=== PATIENT | female | born 1960 | race Caucasian/White ===

== ENCOUNTER 2022-12-11 22:06 | Inpatient (IN) | payer MEDICARE, SELFPAY ==
[2022-12-11 22:20] VITALS: BP 134/90; PULSE 94; RESP 18; TEMP 36.9; O2SAT 97; BMI 33.0
--- NOTE | 2022-12-11 23:43 | ECG_ITS ---
[facility] Test Date: 2022-12-11 Pat Name: Farzana Vasques Department: Room: Gender: Female [employer] Technician: : 1960 Requested By: Jerry Ozuna Order Number: [id number] Maxi MD: Veronica Heard M.D. Measurements Intervals [place] Rate: 80 P: 59 OH: 150 QRS: -28 QRSD: 92 T: 54 QT: 366 QTc: 425 Interpretive Statements SINUS RHYTHM INCOMPLETE RIGHT BUNDLE BRANCH BLOCK [90+ ms QRS DURATION, TERMINAL R IN V1/V2, 40+ ms S IN I/aVL/V4/V5/V6] SEPTAL MYOCARDIAL INFARCTION , OF INDETERMINATE AGE [40+ ms Q WAVE IN V1/V2] No previous ECG available for comparison Electronically Signed On 12-12-2022 5:55:36 CDT by Veronica Heard M.D. [email or web address]
[2022-12-12 00:48] LABS: Basophils # 0.1 10^3/uL (0.0-0.1); Basophils % 0.8 %; Eosinophils # 0.1 10^3/uL (0.0-0.8); Eosinophils % 2.2 %; Hematocrit 36.9 % (36-47); Lymphocytes # 2.4 10^3/uL (0.8-4.8); Lymphocytes % 38.3 %; Mean Corpuscular HGB Conc 33.6 g/dL (30-55); Mean Corpuscular Hemoglobin 29.7 pg (27-33); Mean Corpuscular Volume 88.3 fl (85-98); Monocytes # 0.6 10^3/uL (0.2-0.9); Monocytes % 10.2 %; Neutrophils # 2.99 10^3/uL (1.8-7.7); Neutrophils % 47.7 %; Nucleated Red Blood Cells % 0 %; Platelet Count 167 10^3/cmm (157-399); Red Blood Count 4.18 10^6/uL (3.85-5.65); Red Cell Distribution Width 13.2 % (12.1-15.1); White Blood Count 6.27 10^3/uL (3.29-11.43)
[2022-12-12 01:03] LABS: Alanine Aminotransferase 33 U/L (0-33); Albumin Level 4.2 g/dL (3.5-5.2); Alkaline Phosphatase 85 U/L (35-105); Anion Gap 13.6 (5-19); Aspartate Amino Transferase 41 U/L (0-32); Blood Urea Nitrogen 11 mg/dL (8-23); Calcium 9.2 mg/dL (8.5-10.5); Carbon Dioxide 24 mmol/L (22-29); Chloride 106 mmol/L (98-107); Globulin 2.5 g/dL (1.3-4.6); Glomerular Filtration Rate 72.4 mL/min (90-130); Glucose 111 mg/dL (65-115); Osmolality Calculated 290 mOsm/kg (285-295); Potassium 3.6 mmol/L (3.5-5.1); Sodium 140 mmol/L (136-145); Total Bilirubin 0.3 mg/dL (0.15-1.2); Total Protein 6.7 g/dL (6.6-8.7)
--- NOTE | 2022-12-12 03:25 | PC.NURSE ---
Provider in room, pt screaming and crying. upset with provider that he they have been waiting for a long time despite prev informed that it might be a little wait.
[2022-12-12] MEDS: LORazepam 2 mg/mL INJ 1 mL IVP (03:27)
[2022-12-12] MEDS: haloperidol inj 5 mg/mL INJ 1 mL 3 MG IVP (03:27)
[2022-12-12 03:31] VITALS: BP 143/88; PULSE 68; RESP 18; O2SAT 99
[2022-12-12 03:58] LABS: Acetaminophen < 5.0 ug/mL (10-30); Alcohol Level < 10 mg/dL (0-10); Salicylate < 0.3 mg/dL (3-10)
[2022-12-12 04:44] LABS: Add Urine Microscopic? YES; Bilirubin Urine 1+ (Negative); Blood Urine Neg (Negative); Glucose Urine UA Norm (Normal); Ketones Urine Negative (Negative); Leukocyte Esterase Urine Trace (Negative); Nitrate Urine Negative (Negative); Protein Urine Trace (Negative); Specific Gravity, Urine 1.015 (1.005-1.030); Urine Appearance Clear (CLEAR); Urine Color Yellow (Yellow); Urobilinogen Urine 1 mg/dL (Negative); pH Urine 5 (5-7)
[2022-12-12 04:45] LABS: Add Urine Culture? No; WBC Urine 0-4 /hpf (0-5)
[2022-12-12 05:15] LABS: Amphetamines Screen Urine Negative (Negative); Barbiturates Screen Urine Negative (Negative); Benzodiazepines Screen Urine Positive (Negative); Cocaine Screen Urine Negative (Negative); Opiate Screen Urine Negative (Negative); PCP Screen Urine Negative (Negative); THC Screen Urine Negative (Negative)
--- NOTE | 2022-12-12 05:17 | W.ED.GENADLT ---
HPI - General Adult General: Chief complaint: General Medical Stated complaint: Shoulder Pain\Dehydrated Time Seen by Provider: 12/12/22 03:13 History of Present Illness: 62-year-old female with a history of bipolar disorder. She has had inpatient admissions for psychiatric disease in the past. Her states that he took her to [facility] yesterday because she had multiple complaints including Shoulder discomfort, shortness of breath, and insomnia. She evidently had a CT scan there that was negative. Has been believes it is her anxiety causing the shortness of breath. She is quite anxious on interview. She is asking for her mother. She is crying hysterically. states that she has not. She had a recent shoulder replacement surgery 4 weeks ago, and has been in pain, although the pain has reasonably been controlled says. She has not made any overt suicidal statements. She is difficult to interview, due to her distress. No other recent illness. Associated symptoms: Reports dyspnea and nausea; Deny rash or vomiting Review of Systems Const: Denies: fever(s) Eyes: Denies: change in vision Resp: Reports: dyspnea; Denies: productive cough or non-productive cough GI: Reports: nausea; Denies: abdominal pain or vomiting Skin/Breast: Denies: rash Neuro: Reports: weakness in extremities (Diffuse) Psych: Reports: anxiety, depression, panic attacks, sleeping less, hopelessness, loss of interest and change in appetite Physical Exam Const: GENERAL APPEARANCE: in distress and ill appearing; not cooperative and not frail appearing HENMT: COMMON NORMALS: normocephalic and atraumatic HEAD & SCALP: normocephalic and atraumatic FACE & SINUS: normal facial exam Eye: COMMON NORMALS: Equal, round and reactive pupils present and EOMs intact bilaterally PUPIL: Yes Equal, round and reactive pupils present Neck/C-Spine: GENERAL: Yes trachea midline Chest: CHEST: Yes Symmetrical chest wall rise Resp: COMMON NORMALS: normal respiratory effort, No retractions, No use of accessory muscles and clear to auscultation bilaterally AUSCULTATION: clear to auscultation bilaterally Cardio: COMMON NORMALS: regular rate and regular rhythm RATE: regular rate RHYTHM: regular rhythm GI: COMMON NORMALS: Normal to inspection, nondistended, normoactive bowel sounds present PALPATION: No Tenderness to palpation present (GI) Extremity: COMMON NORMALS: no pedal edema Neuro: RAAD COMA SCALE: document GCS findings [place] coma scale eye opening: Spontaneous Raad coma scale verbal response: Orientated Raad coma scale motor response: Obey commands Raad coma scale total score: 15 SPEECH: speech normal Psych: ATTITUDE: Yes bizarre and Yes agitated ACTIVITY/MOTOR BEHAVIOR: Yes psychomotor agitation and Yes fidgeting SPEECH: Yes Pressured speech present THOUGHT PROCESS: Circumstantial thought process present THOUGHT CONTENT: Yes delusions and Yes Derealization present ATTENTION/CONCENTRATION: Yes attention grossly impaired and Yes concentration grossly impaired MEMORY/COGNITION: Yes memory grossly intact and Yes cognition grossly intact INSIGHT: Limited insight present (Psych) JUDGEMENT: Limited judgement present (Psych) Skin: COMMON NORMALS: no rashes or lesions noted GENERAL SKIN EXAM: no rashes or lesions noted Course Vital Signs: Vital signs: Vital Signs Temperature 98.4 F 12/11/22 22:20 Pulse Rate 68 12/12/22 03:31 Respiratory Rate 18 12/12/22 03:31 Blood Pressure 143/88 12/12/22 03:31 Pulse Oximetry 99 12/12/22 03:31 Oxygen Delivery Me thod Room Air 12/12/22 03:31 MDM - General Adult Medical Decision Making Medically, labs are quite stable. No abnormalities. this patient is hysterical at times. She is nonsensical. She continues to cry and ask for her mom. Her says that he is at his wits end. He is having trouble helping her cope at home. He cannot take care of her. Although not frankly suicidal, she does present a danger to herself and that her judgment is compromised at this point. She is willing to stay and be evaluated by psychiatry, I think this is appropriate. Medically, she is stable. Spoke with psychiatry. Agrees with admit. Lab Data 12/12/22 00:36 12/12/22 00:36 Laboratory Results WBC 6.27 10^3/uL (3.29-11.43) 12/12/22 00:36 RBC 4.18 10^6/uL (3.85-5.65) 12/12/22 00:36 Hgb 12.40 g/dL (11.27-16.99) 12/12/22 00:36 Hct 36.9 % (36-47) 12/12/22 00:36 MCV 88.3 fl (85-98) 12/12/22 00:36 MCH 29.7 pg (27-33) 12/12/22 00:36 MCHC 33.6 g/dL (30-55) 12/12/22 00:36 RDW 13.2 % (12.1-15.1) 12/12/22 00:36 Plt Count 167 10^3/cmm (157-399) 12/12/22 00:36 MPV 10.0 fL (7.4-10.4) 12/12/22 00:36 Neut % (Auto) 47.7 % 12/12/22 00:36 Lymph % (Auto) 38.3 % 12/12/22 00:36 [place] % (Auto) 10.2 % 12/12/22 00:36 Eos % (Auto) 2.2 % 12/12/22 00:36 Baso % (Auto) 0.8 % 12/12/22 00:36 Neut # (Auto) 2.99 10^3/uL (1.8-7.7) 12/12/22 00:36 Lymph # (Auto) 2.4 10^3/uL (0.8-4.8) 12/12/22 00:36 [place] # (Auto) 0.6 10^3/uL (0.2-0.9) 12/12/22 00:36 Eos # (Auto) 0.1 10^3/uL (0.0-0.8) 12/12/22 00:36 Baso # (Auto) 0.1 10^3/uL (0.0-0.1) 12/12/22 00:36 Nucleated RBC % (auto) 0 % 12/12/22 00:36 Nucleated RBCs # 0.0 /100WBC 12/12/22 00:36 Sodium 140 mmol/L (136-145) 12/12/22 00:36 Potassium 3.6 mmol/L (3.5-5.1) 12/12/22 00:36 Chloride 106 mmol/L (98-107) 12/12/22 00:36 Carbon Dioxide 24 mmol/L (22-29) 12/12/22 00:36 Anion Gap 13.6 (5-19) 12/12/22 00:36 BUN 11 mg/dL (8-23) 12/12/22 00:36 Creatinine 0.8 mg/dL (0.5-0.9) 12/12/22 00:36 GFR Calculation 72.4 mL/min (90-130) L 12/12/22 00:36 Glucose 111 mg/dL (65-115) 12/12/22 00:36 Calculated Osmolality 290 mOsm/kg (285-295) 12/12/22 00:36 Calcium 9.2 mg/dL (8.5-10.5) 12/12/22 00:36 Magnesium 2.0 mg/dL (1.7-2.3) 12/12/22 00:36 Total Bilirubin 0.3 mg/dL (0.15-1.2) 12/12/22 00:36 AST 41 U/L (0-32) H 12/12/22 00:36 ALT 33 U/L (0-33) 12/12/22 00:36 Alkaline Phosphatase 85 U/L (35-105) 12/12/22 00:36 Total Protein 6.7 g/dL (6.6-8.7) 12/12/22 00:36 Albumin 4.2 g/dL (3.5-5.2) 12/12/22 00:36 Globulin 2.5 g/dL (1.3-4.6) 12/12/22 00:36 Urine Color Yellow (Yellow) 12/12/22 04:27 Urine Appearance Clear (CLEAR) 12/12/22 04:27 Urine pH 5 (5-7) 12/12/22 04:27 Ur Specific [place] 1.015 (1.005-1.030) 12/12/22 04:27 Urine Protein Trace (Negative) 12/12/22 04:27 Urine Glucose (UA) Norm (Normal) 12/12/22 04:27 Urine Ketones Negative (Negative) 12/12/22 04:27 Urine Blood Neg (Negative) 12/12/22 04:27 Urine Nitrate Negative (Negative) 12/12/22 04:27 Urine Bilirubin 1+ (Negative) H 12/12/22 04:27 Urine Urobilinogen 1 mg/dL (Negative) H 12/12/22 04:27 Ur Leukocyte Esterase Trace (Negative) H 12/12/22 04:27 Urine RBC None /hpf (0-2) 12/12/22 04:27 Urine WBC 0-4 /hpf (0-5) H 12/12/22 04:27 Ur Squamous Epith Cells 10-15 /hpf (0-5) H 12/12/22 04:27 Amorphous Sediment Not Reportable 12/12/22 04:27 Urine Bacteria None /hpf (NONE) 12/12/22 04:27 Salicylates < 0.3 mg/dL (3-10) L 12/12/22 00:36 Urine Opiates Screen Negative ng/mL (Negative) 12/12/22 04:27 Acetaminophen < 5.0 ug/mL (10-30) L 12/12/22 00:36 Ur Barbiturates Screen Negative ng/mL (Negative) 12/12/22 04:27 Ur Phencyclidine Scrn Negative ng/mL (Negative) 12/12/22 04:27 Ur Amphetamines Screen Negative ng/mL (Negative) 12/12/22 04:27 U Benzodiazepines Scrn Positive ng/mL (Negative) H 12/12/22 04:27 Urine Cocaine Screen Negative ng/mL (Negative) 12/12/22 04:27 U Marijuana (THC) Screen Negative ng/mL (Negative) 12/12/22 04:27 Ethyl Alcohol < 10 mg/dL (0-10) 12/12/22 00:36 All radiology interpretation(s) finalized by discharge Discharge Plan Discharge Patient Disposition: Admitted As Inpatient Admit Provider: Gibson Quesada Condition: Stable Coding Level of Care Code ED Sales Office Administrator for Alonzo Serrano
[2022-12-12 05:29] VITALS: BP 141/82; PULSE 58; RESP 18; TEMP 36.7; O2SAT 98
[2022-12-12 05:41] VITALS: BMI 33.0
[2022-12-12 06:00] VITALS: BP 141/82; PULSE 58; RESP 18; TEMP 36.7; O2SAT 98
--- NOTE | 2022-12-12 06:20 | PC.NURSE ---
Pt arrived to NPU in w/c w/2 RN's present. Pt is somnolent from receiving medications in ER. Calm and cooperative w/assessment.
--- NOTE | 2022-12-12 08:13 | PC.NURSE ---
refused flu vaccine, consent signed by patient & put in chart
[2022-12-12 12:25] VITALS: BP 108/70; PULSE 68; RESP 18; TEMP 37.2; O2SAT 97
--- NOTE | 2022-12-12 13:11 | P.NPUHP_ITS ---
Providers/Chief Complaint Admitting Physician: Gibson Quesada MD Chief Complaint: Shoulder Pain\depressed mood HPI NPU History of Present Illness Farzana Vasques is a 62 year old female with a past history of bipolar disorder and multiple inpatient hospitalizations who presented to the emergency department with depression and anxiety. The patient had initially reported that she had been taken to [facility] yesterday after she had had multiple problems including significant pain shortness of breath and insomnia. She had reported that her symptoms had been worse despite there being reassurances that there was nothing acute occurring. She was admitted to the neuropsychiatric unit for further evaluation and treatment. She reports that she has been having suicidal thoughts beginning last night and reports that her depression has been worse for the past month. She reports that she had recently found out that her oldest son had overdosed on cocaine and fentanyl and required revival 2 times over the course of a week. She reports that her other youngest son has expressed that she he is having a mental breakdown and reports that all of her family stressors have led her to feeling more depressed. She endorses having a history of bipolar depression with periods of mark and reports that she has had a history of mixed manic episodes. She currently reports that she is having a hard time concentrating with reports of having racing thoughts along with difficulties falling asleep with associated depressed mood and increased periods of crying. She reports that she had spoken with her psychiatrist virtually a few weeks ago and had requested a change in medications. She reports compliance with her psychiatric medications. She is also endorsed significant physical problems stating that she has been in severe pain after having shoulder surgery 4 weeks ago. The patient reports no history of recent psychosis. She denies any drug or alcohol use on admission. Inpatient psychiatric history: The patient reports multiple inpatient hospitalizations for depression and bipolar disorder with last reports of inpatient hospitalization several years ago. She has had a reported history of suicide attempts via overdose. Outpatient psychiatric history: She reports psychiatric treatment began at the age of 9 for depression and states that she is currently followed by Dr. Nagi Su in [facility]. She reports not having received psychotherapy. Drug and alcohol history: None reported Allergies: Penicillin, sulfa drugs Medical history: Back pain, neck pain,hypertension Surgical history: Hysterectomy, bladder surgery, 2 spine surgeries, recent right shoulder surgery 1 month ago Medications: Seroquel, Lamictal, trazodone, Zoloft, pantoprazole, metoprolol, atorvastatin, Family psychiatric history: Notable for bipolar disorder and polysubstance abuse in children. Social history: Patient was born in [place] to an intact family with 3 siblings. She had graduated high school and reports having been traumatized during her childhood years but did not wish to elaborate. She had reported that she has been for 36 years and has 3 children. She reports having recently moved in to her in-laws home 1 year ago in [facility]. She reports that she had previously resided and grew up near [facility]. She had reported having previously worked but is currently on disability for both back pain and for her bipolar disorder. Meds NPU Home Medications Medication Instructions Recorded Confirmed Last Taken Type albuterol sulfate 90 mcg/actuation See Rx Instructions .Route 12/12/22 12/12/22 Unknown History aerosol inhaler .COMPLEX asthma aripiprazole 2 mg tablet 2 mg PO 1XD 12/12/22 12/12/22 Unknown History atorvastatin 20 mg tablet 20 mg PO 1XD 12/12/22 12/12/22 Unknown History cefdinir 300 mg capsule 300 mg PO 2XD 12/12/22 12/12/22 Unknown History lamotrigine 100 mg tablet 100 mg PO BEDTIME 12/12/22 12/12/22 Unknown History methylprednisolone 4 mg tablets in See Rx Instructions .Route .COMPLEX 12/12/22 12/12/22 Unknown History a dose pack metoprolol succinate 100 mg 100 mg PO 1XD 12/12/22 12/12/22 Unknown History tablet,extended release 24 hr oxycodone-acetaminophen 5 mg-325 See Rx Instructions .Route .COMPLEX 12/12/22 12/12/22 Unknown History mg tablet pantoprazole 40 mg tablet,delayed 40 mg PO 1XD 12/12/22 12/12/22 Unknown History release potassium chloride 20 mEq 20 meq PO DIRECTED 12/12/22 12/12/22 Unknown History tablet,extended release(part/cryst) quetiapine 200 mg tablet 200 mg PO BEDTIME 12/12/22 12/12/22 Unknown History sertraline 100 mg tablet 100 mg PO BEDTIME 12/12/22 12/12/22 Unknown History topiramate 25 mg tablet 25 mg PO 2XD 12/12/22 12/12/22 Unknown History trazodone 100 mg tablet 100 mg PO BEDTIME 12/12/22 12/12/22 Unknown History Allergies Allergy/AdvReac Type Severity Reaction Status Date / Time Penicillins Allergy Unknown Verified 12/12/22 03:40 Sulfa (Sulfonamide Allergy Unknown Verified 12/12/22 03:40 Antibiotics) Mental Status Exam MSE Comments: Patient is a casually dressed white female who appeared distracted throughout much of her interview and in moderate to severe distress. She was unable initially to describe where she was at the time. She was alert and oriented to the date and day of the week along with the month and year. She had described her mood as depressed. Her affect was mood congruent and dysphoric. Her thought process was linear logical and goal-directed. Her thought content showed no evidence of active homicidal ideation although she did endorse having suicidal ideation without a plan. Her attention span was poor. She did not appear to be responding to internal stimuli. There was no clear evidence of delusional thinking. Her speech was slow with normal volume and prosody. Her insight appeared poor. Her judgment was poor. Her impulse control appeared limited. Vitals/I&O/Wt Last Vital Signs Temp 99.0 F 12/12/22 12:25 Pulse 68 12/12/22 12:25 Resp 18 12/12/22 12:25 BP 108/70 12/12/22 12:25 Pulse Ox 97 12/12/22 12:25 O2 Del Method Room Air 12/12/22 06:06 Weight last 48 hrs Weight 82.1 kg Weight 82.1 kg Data NPU 12/12/22 00:36 12/12/22 00:36 A&P Assessment and plan (1) Bipolar I disorder with depression, severe: Plan Patient is a 62-year-old white female with bipolar depression with suicidal ideation currently reporting worsening depression. The patient would likely benefit from continued inpatient hospitalization with medication adjustments. 1. ?Encourage individual, group and milieu therapy. 2. Restart outpatient medications with likely increase in seroquel to target bipolar depression once outpatient dosing of medication confirmed. 3. Continue q-15 minute checks for safety.? 4. Will attempt to gather collateral information. Involuntary Hold Information 96 Hour Hold: 96 Hour Involuntary Admission: No Attestations NPU Medical Necessity Statement*: Inpatient hospitalization is medically necessary and deemed to be the ?clinically appropriate intervention ?at this time.? We will monitor/initiate medications and make changes as indicated.? She will be in the hospital for over 2 midnights.? Her likely length of stay 7-10 days. Coding Level of Care Code Acute Code for g Fwd Diagnoses Bipolar I disorder with depression, severe F31.4
--- NOTE | 2022-12-12 14:17 | PC.NURSE ---
refused lunch tray
[2022-12-12] MEDS: metoprolol succinate ER (24 HR) 50 mg Tablet 100 MG PO (14:52)
[2022-12-12] MEDS: ARIPiprazole 2 mg Tablet PO (14:52)
[2022-12-12] MEDS: pantoprazole DR 40 mg Tablet PO (14:52)
[2022-12-12 19:24] VITALS: BP 150/84; PULSE 71; RESP 16; TEMP 37.1; O2SAT 95
[2022-12-12] MEDS: acetaminophen 325 mg Tablet 650 MG PO (19:57)
[2022-12-12] MEDS: sertraline 100 mg Tablet PO (20:28)
[2022-12-12] MEDS: quetiapine 100 mg Tablet 200 MG PO (20:28)
[2022-12-12] MEDS: atorvastatin 40 mg Tablet 20 MG PO (20:28)
[2022-12-12] MEDS: topiramate 25 mg Tablet PO (20:29)
[2022-12-12] MEDS: trazodone 100 mg Tablet PO (20:29)
[2022-12-12] MEDS: lamoTRIgine 100 mg Tablet PO (20:29)
[2022-12-13] MEDS: acetaminophen 325 mg Tablet 650 MG PO (05:35)
[2022-12-13 06:00] VITALS: BP 104/70; PULSE 63; RESP 14; TEMP 36.9; O2SAT 14
[2022-12-13] MEDS: ibuprofen 600 mg Tablet PO ×2 (08:00→20:03)
[2022-12-13] MEDS: pantoprazole DR 40 mg Tablet PO (08:01)
[2022-12-13] MEDS: metoprolol succinate ER (24 HR) 50 mg Tablet 100 MG PO (08:01)
[2022-12-13] MEDS: topiramate 25 mg Tablet PO (08:01)
[2022-12-13] MEDS: ARIPiprazole 2 mg Tablet PO (08:01)
[2022-12-13] MEDS: hyDROXYzine 25 mg Capsule 50 MG PO (08:43)
--- NOTE | 2022-12-13 08:58 | PC.NURSE ---
This RN contacted Dr. Rodriguez', patient's ortho surgeon, to follow up on how long patient is supposed to wear her sling. The RN at Dr. Rodriguez' office confirmed that patient was seen on 12/07/22 for a follow up appointment and the doctor's note stated she should wear the sling until 12/21/2022 and follow up with another appointment with him. No further orders at this point.
[2022-12-13 13:43] VITALS: BP 148/88; PULSE 75; RESP 18; TEMP 37.3; O2SAT 97
[2022-12-13] MEDS: OLANZapine 5 mg ODT PO (14:30)
--- NOTE | 2022-12-13 17:42 | P.NPUPN_ITS ---
Subjective NPU Subjective: 62-year-old white female with bipolar depression admitted with suicidal ideation. The patient had endorsed having more frequent episodes of depression and stated that she had been on 600 mg of Seroquel with some worsening depression. She had reported compliance with her medications. She had reported other trials for treating bipolar depression were limited with no previous trials on Latuda, Vraylar,or any reasonable dose of Abilify. The patient had reported that her thoughts were not racing. She had reported limited energy and low motivation with periods of depression having lingered for the past 5 weeks. She had reported no suicidal thoughts today. Mental Status Exam MSE Comments: Patient is a casually dressed white female who appeared distracted throughout much of her interview and in moderate distress. She was alert and oriented to person place time and situation today. She had described her mood as a little better. Her affect remained flat. Her thought process was linear logical and goal-directed. Her thought content showed no evidence of active homicidal ideation and denied any suicidal ideation. Her attention span was improved.. She did not appear to be responding to internal stimuli. There was no clear evidence of delusional thinking. Her speech was more productive with normal volume and prosody. Her insight appeared poor. Her judgment was poor. Her impulse control appeared limited. Vitals/I&O/Wt Last Vital Signs Temp 99.2 F 12/13/22 13:43 Pulse 75 12/13/22 13:43 Resp 18 12/13/22 13:43 BP 148/88 12/13/22 13:43 Pulse Ox 97 12/13/22 13:43 O2 Del Method Room Air 12/13/22 06:00 Weight last 48 hrs Weight 82.1 kg Weight 82.1 kg Data NPU 12/12/22 00:36 12/12/22 00:36 A&P Assessment and plan (1) Bipolar I disorder with depression, severe: Plan Patient is a 62-year-old white female with bipolar depression with suicidal ideation currently reporting worsening depression. The patient would likely benefit from continued inpatient hospitalization with medication adjustments. 1. ?Encourage individual, group and milieu therapy. 2. Previous outpatient medications were confirmed. Seroquel will be increased to 700 mg at night. Patient will remain on Lamictal at 100 mg twice a day. The patient will be restarted on Zoloft at 200 mg daily as previously prescribed as well. 3. Continue q-15 minute checks for safety.? 4. Will attempt to gather collateral information. Involuntary Hold Information 96 Hour Hold: 96 Hour Involuntary Admission: No Attestations NPU Medical Necessity Statement*: Inpatient hospitalization is medically necessary and deemed to be the ?clinically appropriate intervention ?at this time.? We will monitor/initiate medications and make changes as indicated.? She will be in the hospital for over 2 midnights.? Her likely length of stay 3-5 days. Coding Level of Care Code Acute Code for [facility] Fwd Diagnoses Bipolar I disorder with depression, severe F31.4
[2022-12-13] MEDS: lamoTRIgine 100 mg Tablet PO (18:27)
[2022-12-13] MEDS: quetiapine 300 mg Tablet 600 MG PO (20:02)
[2022-12-13] MEDS: atorvastatin 40 mg Tablet 20 MG PO (20:02)
[2022-12-13] MEDS: quetiapine 100 mg Tablet PO (20:02)
[2022-12-13] MEDS: sertraline 100 mg Tablet 200 MG PO (20:03)
[2022-12-13] MEDS: topiramate 25 mg Tablet 50 MG PO (20:03)
[2022-12-13 20:27] VITALS: BP 153/88; PULSE 73; RESP 18; TEMP 37.5; O2SAT 93
[2022-12-14 06:00] VITALS: BP 98/61; PULSE 56; RESP 15; TEMP 36.4; O2SAT 97
[2022-12-14] MEDS: pantoprazole DR 40 mg Tablet PO (08:19)
[2022-12-14] MEDS: metoprolol succinate ER (24 HR) 50 mg Tablet 100 MG PO (08:19)
[2022-12-14] MEDS: topiramate 25 mg Tablet 50 MG PO ×2 (08:20→20:25)
[2022-12-14] MEDS: ibuprofen 600 mg Tablet PO (08:20)
[2022-12-14] MEDS: lamoTRIgine 100 mg Tablet PO ×2 (08:20→17:28)
--- NOTE | 2022-12-14 09:06 | PC.NURSE ---
IN BED RESTING. SLING REMAINS ON RIGHT ARM DUE TO RECENT SURGERY. PT DENIES PAIN. DENIES SI/HI AND AVH AT THIS TIME. PT REPORTS IMPROVED DEPRESSION AND ANXIETY. PT UP AND TAKING A SHOWER. NO DISTRESS ITS NOTED
[2022-12-14] MEDS: hyDROXYzine 25 mg Capsule 50 MG PO (11:10)
[2022-12-14 14:00] VITALS: BP 140/87; PULSE 75; RESP 20; TEMP 37.2; O2SAT 95
[2022-12-14] MEDS: SUMAtriptan 25 mg Tablet PO (15:03)
[2022-12-14] MEDS: calcium carbonate 500 mg Chew Tablet 1000 MG PO (15:03)
--- NOTE | 2022-12-14 18:35 | W.PM.NPUPNS ---
Subjective NPU Subjective: 62-year-old white female with bipolar depression admitted with suicidal ideation. the patient reported feeling less depressed. She had reported improved sleep. She reported no side effects from the increase in Seroquel. Patient had asked meaningful questions regarding diet and potential for use of dietary modification including omega fatty acids for treating bipolar depression. She reported no feelings of hopelessness. She had reported some improvement in energy. Mental Status Exam MSE Comments: Patient is a casually dressed white female who appeared distracted throughout much of her interview and in mild distress. She was alert and oriented to person place time and situation today. She had described her mood as better. Her affect was less restricted today. Her thought process was linear logical and goal-directed. Her thought content showed no evidence of active homicidal ideation and denied any suicidal ideation. Her attention span was improved. She did not appear to be responding to internal stimuli. There was no clear evidence of delusional thinking. Her speech was more productive with normal volume and prosody. Her insight appeared to be improving. Her judgment was poor. Her impulse control appeared limited. Vitals/I&O/Wt Last Vital Signs Temp 98.9 F 12/14/22 14:00 Pulse 75 12/14/22 14:00 Resp 20 H 12/14/22 14:00 BP 140/87 12/14/22 14:00 Pulse Ox 95 12/14/22 14:00 O2 Del Method Room Air 12/14/22 06:00 Data NPU 12/12/22 00:36 12/12/22 00:36 A&P Assessment and plan (1) Bipolar I disorder with depression, severe: Plan Patient is a 62-year-old white female with bipolar depression with suicidal ideation currently reporting worsening depression. The patient would likely benefit from continued inpatient hospitalization with medication adjustments. 1. ?Encourage individual, group and milieu therapy. 2. Previous outpatient medications were confirmed. Seroquel will be increased to 700 mg at night. Patient will remain on Lamictal at 100 mg twice a day. Continue Zoloft 200mg daily. 3. Continue q-15 minute checks for safety.? 4. Discussed dietary modification for optimizing function with bipolar disorder. Check FSG, FLP, AST/ALT, Cbc with diff. Involuntary Hold Information 96 Hour Hold: 96 Hour Involuntary Admission: No Attestations NPU Medical Necessity Statement*: Inpatient hospitalization is medically necessary and deemed to be the ?clinically appropriate intervention ?at this time.? We will monitor/initiate medications and make changes as indicated.? She will be in the hospital for over 2 midnights.? Her likely length of stay 3-5 days. Coding Level of Care Code Acute Code for Chg Fwd Diagnoses Bipolar I disorder with depression, severe F31.4
[2022-12-14] MEDS: sertraline 100 mg Tablet 200 MG PO (20:25)
[2022-12-14] MEDS: quetiapine 300 mg Tablet 600 MG PO (20:25)
[2022-12-14 20:26] VITALS: RESP 17
[2022-12-14] MEDS: quetiapine 100 mg Tablet PO (20:26)
[2022-12-14] MEDS: atorvastatin 40 mg Tablet 20 MG PO (20:26)
[2022-12-14] MEDS: oxyCODONE-APAP 5-325 mg Tablet 1 TAB PO (20:26)
[2022-12-14 20:28] VITALS: BP 165/69; PULSE 71; RESP 18; TEMP 38.3; O2SAT 94
[2022-12-15] MEDS: ibuprofen 600 mg Tablet PO ×2 (03:00→15:06)
[2022-12-15 06:00] VITALS: BP 117/69; PULSE 59; RESP 17; TEMP 36.4; O2SAT 95
[2022-12-15 09:08] LABS: Basophils # 0.1 10^3/uL (0.0-0.1); Basophils % 0.9 %; Eosinophils # 0.2 10^3/uL (0.0-0.8); Eosinophils % 3.2 %; Hematocrit 36.8 % (36-47); Lymphocytes # 1.1 10^3/uL (0.8-4.8); Mean Corpuscular HGB Conc 32.9 g/dL (30-55); Mean Corpuscular Hemoglobin 29.3 pg (27-33); Mean Corpuscular Volume 89.1 fl (85-98); Mean Platelet Volume 10.1 fL (7.4-10.4); Monocytes # 0.4 10^3/uL (0.2-0.9); Monocytes % 7.7 %; Neutrophils # 3.77 10^3/uL (1.8-7.7); Neutrophils % 67.5 %; Nucleated Red Blood Cells % 0 %; Platelet Count 155 10^3/cmm (157-399); Red Blood Count 4.13 10^6/uL (3.85-5.65); Red Cell Distribution Width 13.1 % (12.1-15.1); White Blood Count 5.59 10^3/uL (3.29-11.43)
[2022-12-15 09:29] LABS: Estmated Average Glucose 100; Hemoglobin A1C 5.1 % (4.0-6.0)
[2022-12-15 09:30] LABS: Alanine Aminotransferase 33 U/L (0-33); Albumin Level 4.2 g/dL (3.5-5.2); Alkaline Phosphatase 77 U/L (35-105); Anion Gap 16.6 (5-19); Aspartate Amino Transferase 35 U/L (0-32); Blood Urea Nitrogen 12 mg/dL (8-23); Calcium 9.3 mg/dL (8.5-10.5); Carbon Dioxide 21 mmol/L (22-29); Chloride 106 mmol/L (98-107); Chol HDL Ratio 5.74 mg/dL (0.0-4.40); Cholesterol 178 mg/dL (0-200); Globulin 2.4 g/dL (1.3-4.6); Glucose 132 mg/dL (65-115); HDL Cholesterol 31 mg/dL (60-100); LDL Cholesterol Calculated 88 mg/dL (50-129); LDL HDL Ratio 2.84 RATIO (0.00-3.22); Osmolality Calculated 292 mOsm/kg (285-295); Potassium 3.6 mmol/L (3.5-5.1); Sodium 140 mmol/L (136-145); Total Bilirubin 0.4 mg/dL (0.15-1.2); Total Protein 6.6 g/dL (6.6-8.7); Triglycerides 294 mg/dL (0-150)
[2022-12-15] MEDS: pantoprazole DR 40 mg Tablet PO (10:26)
[2022-12-15] MEDS: metoprolol succinate ER (24 HR) 50 mg Tablet 100 MG PO (10:27)
[2022-12-15] MEDS: lamoTRIgine 100 mg Tablet PO ×2 (10:27→17:54)
[2022-12-15] MEDS: topiramate 25 mg Tablet 50 MG PO ×2 (10:27→20:58)
--- NOTE | 2022-12-15 11:24 | DCPLANNER ---
IMM was printed. Rights explained and given to pt and copy placed in her file
[2022-12-15] MEDS: hyDROXYzine 25 mg Capsule 50 MG PO (12:14)
[2022-12-15 14:00] VITALS: BP 120/70; PULSE 75; RESP 16; TEMP 36.6; O2SAT 96
--- NOTE | 2022-12-15 17:24 | W.PM.NPUPNS ---
Subjective NPU Subjective: 62-year-old white female with bipolar depression admitted with suicidal ideation. Patient's labs showed evidence of hypertriglyceridemia. The patient had reported adequate sleep. She had reported having gone to groups and became sad as she stated that she had continued to report an inability to manage her stress at home. She had continue to endorse depression. She had reported at times feeling hopeless and reported feelings of guilt. She denied any manic symptoms. The patient was compliant on the milieu. She reported no psychotic symptoms. She had reported a desire to be closer to her family. She reported no side effects from her medications currently. Mental Status Exam MSE Comments: Patient is a casually dressed white female who appeared distracted throughout much of her interview and in mild distress. She was alert and oriented to person place time and situation today. She had described her mood as sad.. Her affect was quite tearful today. Her thought process was linear logical and goal-directed. Her thought content showed no evidence of active homicidal ideation and denied any suicidal ideation. Her attention span was improved. She did not appear to be responding to internal stimuli. There was no clear evidence of delusional thinking. Her speech was more productive with normal volume and prosody. Her insight appeared to be improving. Her judgment was poor. Her impulse control appeared limited. Vitals/I&O/Wt Last Vital Signs Temp 98 F 12/15/22 14:00 Pulse 75 12/15/22 14:00 Resp 16 12/15/22 14:00 BP 120/70 12/15/22 14:00 Pulse Ox 96 12/15/22 14:00 O2 Del Method Room Air 12/15/22 06:00 Data NPU 12/15/22 08:56 12/15/22 08:56 A&P Assessment and plan (1) Bipolar I disorder with depression, severe: Plan Patient is a 62-year-old white female with bipolar depression with suicidal ideation currently reporting worsening depression. The patient would likely benefit from continued inpatient hospitalization with medication adjustments. 1. ?Encourage individual, group and milieu therapy. 2. Previous outpatient medications were confirmed. Continue seroquel at 700 mg at night. Patient will remain on Lamictal at 100 mg twice a day. Continue Zoloft 200mg daily. 3. Continue q-15 minute checks for safety.? 4. Discussed dietary modification for optimizing function with bipolar disorder. Labs showed evidence of elevated triglyceridemia, may benefit from lovaza. 5. Referral for psychotherapy. Involuntary Hold Information 96 Hour Hold: 96 Hour Involuntary Admission: No Attestations NPU Medical Necessity Statement*: Inpatient hospitalization is medically necessary and deemed to be the ?clinically appropriate intervention ?at this time.? We will monitor/initiate medications and make changes as indicated.? She will be in the hospital for over 2 midnights.? Her likely length of stay 1-2 days. Coding Level of Care Code Acute Code for Chg Fwd Diagnoses Bipolar I disorder with depression, severe F31.4
[2022-12-15 20:02] VITALS: BP 149/76; PULSE 68; RESP 18; TEMP 37.3; O2SAT 97
[2022-12-15] MEDS: quetiapine 300 mg Tablet 600 MG PO (20:51)
[2022-12-15] MEDS: trazodone 50 mg Tablet PO (20:51)
[2022-12-15 20:52] VITALS: RESP 17
[2022-12-15] MEDS: sertraline 100 mg Tablet 200 MG PO (20:52)
[2022-12-15] MEDS: quetiapine 100 mg Tablet PO (20:52)
[2022-12-15] MEDS: oxyCODONE-APAP 5-325 mg Tablet 1 TAB PO (20:52)
[2022-12-15] MEDS: atorvastatin 40 mg Tablet 20 MG PO (20:52)
[2022-12-16] MEDS: ibuprofen 600 mg Tablet PO ×2 (04:10→10:32)
[2022-12-16 05:17] LABS: Influenza A by IFA Negative (Negative)
[2022-12-16 05:18] LABS: Influenza B by IFA Negative (Negative)
[2022-12-16] MEDS: cetylpyridinium Lozenge 1 EACH MUCOUS MEM (05:28)
[2022-12-16 05:47] LABS: SARS Covid-2 Antigen Positive (Negative)
[2022-12-16 06:00] VITALS: RESP 18
--- NOTE | 2022-12-16 06:30 | PC.NURSE ---
This tech notified patient at roughly 0550 that she did test positive for Covid. Patient has agreed to wear a mask while in the room. Patient does have a sitter.
[2022-12-16] MEDS: pantoprazole DR 40 mg Tablet PO (08:53)
[2022-12-16] MEDS: metoprolol succinate ER (24 HR) 50 mg Tablet 100 MG PO (08:53)
[2022-12-16] MEDS: topiramate 25 mg Tablet 50 MG PO (08:54)
[2022-12-16] MEDS: lamoTRIgine 100 mg Tablet PO (08:54)
--- NOTE | 2022-12-16 11:47 | P.CONIM_ITS ---
Providers/Reason For Consult Consulting Physician/Specialty*: Hospitalist Reason for Consult*: COVID positive with mild symptoms Requesting Physician: Dr. Ardon Attending Physician: Jatin Ardon MD History of Present Illness History of Present Illness Farzana Vasques is a 62 year old female with bipolar 1 disorder with severe depression and hyperlipidemia originally presented to [facility] with shortness of breath and palpitations. She states that she was found to have a low potassium and she was given replacement. I am unclear the reason but she left and called her primary care physician who said you need to go back to the ER. She came to our ER with those complaints however she says that she lost her mind with the wait time to see a physician and then she was sedated and placed in NPU That shortness of breath and palpitations have resolved. However 2 days ago she complained of fever sore throat general malaise body aches and dry cough. She was tested for COVID and found to be positive. Dr. Joseph was going to discharge the patient however due to COVID symptoms hospitalist consultation was requested. Patient states that overall the Motrin is helping her body aches and general malaise. She has no productive cough. She had a fever overnight but currently well managed again on Motrin. She prefers to go home rather than staying in the hospital. Review of Systems Const: Reports: fever(s), body aches and malaise; Denies: chills Eyes: Denies: change in vision ENMT: Denies: nasal congestion Card: Denies: chest pain or palpitations Resp: Denies: dyspnea or productive cough GI: Denies: abdominal pain, nausea, vomiting or change in stool character : Denies: dysuria Musc: Denies: back pain or extremity pain Skin/Breast: Denies: rash or lesions Neuro: Denies: headache(s) or dizziness Psych: Denies: anxiety or depression Nilesh/Lymph: Denies: easy bruising or easy bleeding Medications/Allergies Home Medications Medication Instructions Recorded Confirmed Last Taken Type albuterol sulfate 90 mcg/actuation See Rx Instructions .Route 12/12/22 12/12/22 Unknown History aerosol inhaler .COMPLEX asthma aripiprazole 2 mg tablet 2 mg PO 1XD 12/12/22 12/12/22 Unknown History atorvastatin 20 mg tablet 20 mg PO 1XD 12/12/22 12/12/22 Unknown History cefdinir 300 mg capsule 300 mg PO 2XD 12/12/22 12/12/22 Unknown History lamotrigine 100 mg tablet 100 mg PO BEDTIME 12/12/22 12/12/22 Unknown History methylprednisolone 4 mg tablets in See Rx Instructions .Route .COMPLEX 12/12/22 12/12/22 Unknown History a dose pack metoprolol succinate 100 mg 100 mg PO 1XD 12/12/22 12/12/22 Unknown History tablet,extended release 24 hr oxycodone-acetaminophen 5 mg-325 See Rx Instructions .Route .COMPLEX 12/12/22 12/12/22 Unknown History mg tablet pantoprazole 40 mg tablet,delayed 40 mg PO 1XD 12/12/22 12/12/22 Unknown History release potassium chloride 20 mEq 20 meq PO DIRECTED 12/12/22 12/12/22 Unknown History tablet,extended release(part/cryst) quetiapine 200 mg tablet 200 mg PO BEDTIME 12/12/22 12/12/22 Unknown History sertraline 100 mg tablet 100 mg PO BEDTIME 12/12/22 12/12/22 Unknown History topiramate 25 mg tablet 25 mg PO 2XD 12/12/22 12/12/22 Unknown History trazodone 100 mg tablet 100 mg PO BEDTIME 12/12/22 12/12/22 Unknown History omega-3 acid ethyl esters 1 gram 2 cap PO BID #120 caps 12/15/22 Unknown Rx capsule (Lovaza) quetiapine 300 mg tablet (Seroquel) 300 mg PO .qhs #30 tabs 12/15/22 Unknown Rx quetiapine 400 mg tablet (Seroquel) 400 mg PO .qhs #30 tabs 12/15/22 Unknown Rx Allergies Allergy/AdvReac Type Severity Reaction Status Date / Time Penicillins Allergy Unknown Verified 12/12/22 03:40 Sulfa (Sulfonamide Allergy Unknown Verified 12/12/22 03:40 Antibiotics) Current Medications Generic Name Dose Route Start Last Admin Trade Name Freq PRN Reason Stop Dose Admin Atorvastatin Calcium 20 mg 12/12/22 21:00 12/15/22 20:52 Atorvastatin 40 Mg Tablet PO 20 mg BEDTIME DONNA Administration Benzocaine 1 each 12/16/22 04:15 12/16/22 05:28 Cetylpyridinium Lozenge MUCOUS MEM 1 each Q2H PRN Administration SORE THROAT Calcium Carbonate 1,000 mg 12/14/22 14:52 12/14/22 15:03 Calcium Carbonate 500 Mg Chew Tablet PO 1,000 mg Q4H PRN Administration heartburn Hydroxyzine Pamoate 50 mg 12/12/22 05:29 12/15/22 12:14 Hydroxyzine 25 Mg Capsule PO 50 mg Q6H PRN Administration ANXIETY Ibuprofen 600 mg 12/13/22 07:54 12/16/22 10:32 Ibuprofen 600 Mg Tablet PO 600 mg Q6H PRN Administration MODERATE PAIN Lamotrigine 100 mg 12/13/22 18:00 12/16/22 08:54 Lamotrigine 100 Mg Tablet PO 100 mg BID DONNA Administration Metoprolol Succinate 100 mg 12/12/22 15:00 12/16/22 08:53 Metoprolol Succinate Er (24 Hr) 50 Mg Tablet PO 100 mg DAILY DONNA Administration Olanzapine 5 mg 12/12/22 05:29 12/13/22 14:30 Olanzapine 5 Mg Odt PO 5 mg Q4H PRN Administration Agitation/Psychosis Oxycodone/Acetaminophen 1 tab 12/15/22 20:30 12/15/22 20:52 Oxycodone-Apap 5-325 Mg Tablet PO 1 tab BID PRN Administration PAIN Pantoprazole Sodium 40 mg 12/12/22 15:00 12/16/22 08:[address] 40 Mg Tablet PO 40 mg DAILY DONNA Administration Quetiapine Fumarate 600 mg 12/13/22 21:00 12/15/22 20:51 Quetiapine 300 Mg Tablet PO 600 mg BEDTIME DONNA Administration Quetiapine Fumarate 100 mg 12/13/22 21:00 12/15/22 20:52 Quetiapine 100 Mg Tablet PO 100 mg BEDTIME DONNA Administration Sertraline HCl 200 mg 12/13/22 21:00 12/15/22 20:52 Sertraline 100 Mg Tablet PO 200 mg BEDTIME DONNA Administration Topiramate 50 mg 12/13/22 21:00 12/16/22 08:54 Topiramate 25 Mg Tablet PO 50 mg BID@0900,2100 DONNA Administration Trazodone HCl 50 mg 12/12/22 05:29 12/15/22 20:51 Trazodone 50 Mg Tablet PO 50 mg BEDTIME PRN Administration SLEEP Vitals/I&O/Wt Last Vital Signs Temp 99.1 F 12/15/22 20:02 Pulse 68 12/15/22 20:02 Resp 18 12/16/22 06:00 BP 149/76 12/15/22 20:02 Pulse Ox 97 12/15/22 20:02 O2 Del Method Room Air 12/15/22 20:02 Physical Exam Narrative: Overweight female seen lying in bed in no acute distress Neurologic: Alert and oriented to person place time and situation nonfocal on exam Heart: Regular rate and rhythm no ectopy no murmurs clicks gallops or rubs Lungs: Clear to auscultation without wheezes rales or rhonchi good aeration Abdomen: Soft nontender nondistended normal active bowel sounds Extremities: No clubbing/cyanosis or edema Nasopharyngeal exam was deferred due to COVID status. Data 12/15/22 08:56 12/15/22 08:56 A&P Assessment and plan (1) COVID-19: Patient is currently afebrile well managed on Motrin. Her pulse ox was 96-97 both at rest and with walking. Clinically she is stable for discharge. Recommend: * Motrin 600 mg 4 times daily alternating with Tylenol 1 g 4 times a day. * Quercetin 800 to 1000 mg divided into 2 doses. * Vitamin D 5000 IU daily * Vitamin C 4000 mg daily divided into 1000 mg 4 times a day * Zinc 50 mg daily. Plan May discharge from hospital. Above instructions were placed in discharge instructions. Coding Level of Care Code Acute Code for Chg Fwd Diagnoses COVID-19 U07.1
--- NOTE | 2022-12-16 14:09 | P.NPUDS_ITS ---
Diagnoses at Discharge Discharge Diagnosis (1) COVID-19: Status: Acute Reason for Visit Reason for Visit: Shoulder Pain\depressed mood Brief History: History of Present Illness Farzana Vasques is a 62 year old female with a past history of bipolar disorder and multiple inpatient hospitalizations who presented to the emergency department with depression and anxiety.? The patient had initially reported that she had been taken to [facility] yesterday after she had had multiple problems including significant pain shortness of breath and insomnia.? She had reported that her symptoms had been worse despite there being reassurances that there was nothing acute occurring.? She was admitted to the neuropsychiatric unit for further evaluation and treatment.? She reports that she has been having suicidal thoughts beginning last night and reports that her depression has been worse for the past month.? She reports that she had recently found out that her oldest son had overdosed on cocaine and fentanyl and required revival 2 times over the course of a week.? She reports that her other youngest son has expressed that she he is having a mental breakdown and reports that all of her family stressors have led her to feeling more depressed.? She endorses having a history of bipolar depression with periods of mark and reports that she has had a history of mixed manic episodes.? She currently reports that she is having a hard time concentrating with reports of having racing thoughts along with difficulties falling asleep with associated depressed mood and increased periods of crying.? She reports that she had spoken with her psychiatrist virtually a few weeks ago and had requested a change in medications.? She reports compliance with her psychiatric medications.? She is also endorsed significant physical problems stating that she has been in severe pain after having shoulder surgery 4 weeks ago.? The patient reports no history of recent psychosis.? She denies any drug or alcohol use on admission. Inpatient psychiatric history: The patient reports multiple inpatient hospitalizations for depression and bipolar disorder with last reports of inp atient hospitalization several years ago.? She has had a reported history of suicide attempts via overdose. Outpatient psychiatric history: She reports psychiatric treatment began at the age of 9 for depression and states that she is currently followed by Dr. Nagi Su in [facility].? She reports not having received psychotherapy. Drug and alcohol history: None reported Allergies: Penicillin, sulfa drugs Medical history: Back pain, neck pain,hypertension Surgical history: Hysterectomy, bladder surgery, 2 spine surgeries, recent right shoulder surgery 1 month ago Medications: Seroquel, Lamictal, trazodone, Zoloft, pantoprazole, metoprolol, atorvastatin, Family psychiatric history: Notable for bipolar disorder and polysubstance abuse in children. Social history: Patient was born in [place] to an intact family with 3 siblings.? She had graduated high school and reports having been traumatized during her childhood years but did not wish to elaborate.? She had reported that she has been for 36 years and has 3 children.? She reports having recently moved in to her in-laws home 1 year ago in [facility].? She reports that she had previously resided and grew up near [facility].? She had reported having previously worked but is currently on disability for both back pain and for her bipolar disorder. Hospital Course Hospital Course During the hospitalization, the patient had routine laboratory studies which were within normal limits except for a few outliers.? Additionally, there was a general medical evaluation which was also within normal limits and revealed no new acute processes.? At the time of discharge, lethality was denied and psychosis was resolving.? Mood and anxiety were well managed.? The patient endorsed a plan to avoid all drugs of abuse and follow up with the aftercare recommendations of the treatment team.? The patient was evaluated and deemed to be absent credible lethality and had achieved the maximum benefit from an inpatient hospitalization, and so was discharged. ?The patient's medications were restarted and Seroquel was increased to 700 mg at night to target depression with noted improvement in mood. Patient had tested positive for COVID and was febrile but did not require transfer to the medical surgical unit for further treatment in the hospital. Supportive suggestions for managing COVID were recommended with the patient informed to return to the emergency room if her respiratory symptoms worsened. Labs were completed during her stay which showed elevation of triglycerides and Lovaza was added to target this problem. Involuntary Hold Information 96 Hour Hold: 96 Hour Involuntary Admission: No Mental Status Exam MSE Comments: Patient is a casually dressed white female who appeared in no acute distress. She was alert and oriented to person place time and situation today. She had described her mood as better. Her affect was brighter on discharge. Her thought process was linear logical and goal-directed. Her thought content showed no evidence of active homicidal ideation and denied any suicidal ideation. Her attention span was improved. She did not appear to be responding to internal stimuli. There was no clear evidence of delusional thinking. Her speech was more productive with normal volume and prosody. Her insight appeared to be improving. Her judgment was better. Her impulse control appeared fair on discharge. Discharge Data Studies Completed and Pending: Laboratory Results WBC 5.59 10^3/uL (3.2 9-11.43) 12/15/22 08:56 RBC 4.13 10^6/uL (3.8 5-5.65) 12/15/22 08:56 Hgb 12.10 g/dL (11.27 -16.99) 12/15/22 08:56 Hct 36.8 % (36-47) 12/15/22 08:56 MCV 89.1 fl (85-98) 12/15/22 08:56 MCH 29.3 pg (27-33) 12/15/22 08:56 MCHC 32.9 g/dL (30-55) 12/15/22 08:56 RDW 13.1 % (12.1-15.1 ) 12/15/22 08:56 Plt Count 155 10^3/cmm (157 -399) L 12/15/22 08:56 MPV 10.1 fL (7.4-10.4 ) 12/15/22 08:56 Neut % (Auto) 67.5 % 12/15/22 08:56 Lymph % (Auto) 20.0 % 12/15/22 08:56 Centre % (Auto) 7.7 % 12/15/22 08:56 Eos % (Auto) 3.2 % 12/15/22 08:56 Baso % (Auto) 0.9 % 12/15/22 08:56 Neut # (Auto) 3.77 10^3/uL (1.8 -7.7) 12/15/22 08:56 Lymph # (Auto) 1.1 10^3/uL (0.8- 4.8) 12/15/22 08:56 Centre # (Auto) 0.4 10^3/uL (0.2- 0.9) 12/15/22 08:56 Eos # (Auto) 0.2 10^3/uL (0.0- 0.8) 12/15/22 08:56 Baso # (Auto) 0.1 10^3/uL (0.0- 0.1) 12/15/22 08:56 Nucleated RBC % (a uto) 0 % 12/15/22 08:56 Nucleated RBCs # 0.0 /100WBC 12/15/22 08:56 Sodium 140 mmol/L (136-1 45) 12/15/22 08:56 Potassium 3.6 mmol/L (3.5-5 .1) 12/15/22 08:56 Chloride 106 mmol/L (98-10 7) 12/15/22 08:56 Carbon Dioxide 21 mmol/L (22-29) L 12/15/22 08:56 Anion Gap 16.6 (5-19) 12/15/22 08:56 BUN 12 mg/dL (8-23) 12/15/22 08:56 Creatinine 1.0 mg/dL (0.5-0. 9) H 12/15/22 08:56 GFR Calculation 56.0 mL/min (90-1 30) L 12/15/22 08:56 Glucose 132 mg/dL (65-115 ) H 12/15/22 08:56 Estimat Average Gl ucose 100 12/15/22 08:56 Hemoglobin A1c 5.1 % (4.0-6.0) 12/15/22 08:56 Calculated Osmolal ity 292 mOsm/kg (285- 295) 12/15/22 08:56 Calcium 9.3 mg/dL (8.5-10 .5) 12/15/22 08:56 Magnesium 2.0 mg/dL (1.7-2. 3) 12/12/22 00:36 Total Bilirubin 0.4 mg/dL (0.15-1 .2) 12/15/22 08:56 AST 35 U/L (0-32) H 12/15/22 08:56 ALT 33 U/L (0-33) 12/15/22 08:56 Alkaline Phosphata se 77 U/L (35-105) 12/15/22 08:56 Total Protein 6.6 g/dL (6.6-8.7 ) 12/15/22 08:56 Albumin 4.2 g/dL (3.5-5.2 ) 12/15/22 08:56 Globulin 2.4 g/dL (1.3-4.6 ) 12/15/22 08:56 Triglycerides 294 mg/dL (0-150) H 12/15/22 08:56 Cholesterol 178 mg/dL (0-200) 12/15/22 08:56 LDL Cholesterol, C alc 88 mg/dL (50-129) 12/15/22 08:56 HDL Cholesterol 31 mg/dL (60-100) L 12/15/22 08:56 LDL/HDL Ratio 2.84 RATIO (0.00- 3.22) 12/15/22 08:56 Cholesterol/HDL Ra ata 5.74 mg/dL (0.0-4 .40) H 12/15/22 08:56 Urine Color Yellow (Yellow) 12/12/22 04:27 Urine Appearance Clear (CLEAR) 12/12/22 04:27 Urine pH 5 (5-7) 12/12/22 04:27 Ur Specific Gravit y 1.015 (1.005-1.0 30) 12/12/22 04:27 Urine Protein Trace (Negative) 12/12/22 04:27 Urine Glucose (UA) Norm (Normal) 12/12/22 04:27 Urine Ketones Negative (Negati ve) 12/12/22 04:27 Urine Blood Neg (Negative) 12/12/22 04:27 Urine Nitrate Negative (Negati ve) 12/12/22 04:27 Urine Bilirubin 1+ (Negative) H 12/12/22 04:27 Urine Urobilinogen 1 mg/dL (Negative ) H 12/12/22 04:27 Ur Leukocyte Kerry ase Trace (Negative) H 12/12/22 04:27 Urine RBC None /hpf (0-2) 12/12/22 04:27 Urine WBC 0-4 /hpf (0-5) H 12/12/22 04:27 Ur Squamous Epith Cells 10-15 /hpf (0-5) H 12/12/22 04:27 Amorphous Sediment Not Reportable 12/12/22 04:27 Urine Bacteria None /hpf (NONE) 12/12/22 04:27 Salicylates < 0.3 mg/dL (3-10 ) L 12/12/22 00:36 Urine Opiates Scre en Negative ng/mL (N egative) 12/12/22 04:27 Acetaminophen < 5.0 ug/mL (10-3 0) L 12/12/22 00:36 Ur Barbiturates Sc reen Negative ng/mL (N egative) 12/12/22 04:27 Ur Phencyclidine S crn Negative ng/mL (N egative) 12/12/22 04:27 Ur Amphetamines Sc reen Negative ng/mL (N egative) 12/12/22 04:27 U Benzodiazepines Scrn Positive ng/mL (N egative) H 12/12/22 04:27 Urine Cocaine Scre en Negative ng/mL (N egative) 12/12/22 04:27 U Marijuana (THC) Screen Negative ng/mL (N egative) 12/12/22 04:27 Ethyl Alcohol < 10 mg/dL (0-10) 12/12/22 00:36 Influenza Type A A g Negative (Negati ve) 12/16/22 04:40 Influenza Type B A g Negative (Negati ve) 12/16/22 04:40 SARS-CoV-2 Ag (Rap id) Positive (Negati ve) H 12/16/22 05:23 Vitals: Last Vital Signs Temp 99.1 F 12/15/22 20:02 Pulse 68 12/15/22 20:02 Resp 18 12/16/22 06:00 BP 149/76 12/15/22 20:02 Pulse Ox 97 12/15/22 20:02 O2 Del Method Room Air 12/15/22 20:02 Discharge Plan Discharge Patient Disposition: Home Condition: Stable Prescriptions: New Lovaza 1 gram capsule 2 cap PO BID Qty: 120 1RF Seroquel 400 mg tablet 400 mg PO .qhs Qty: 30 1RF Rx Instructions: total nightly dose 700mg Seroquel 300 mg tablet 300 mg PO .qhs Qty: 30 1RF Continued albuterol sulfate 90 mcg/actuation HFA aerosol inhaler See Rx Instructions .ROUTE .COMPLEX Rx Instructions: two puffs as needed q 6hours atorvastatin 20 mg tablet 20 mg PO 1XD lamotrigine 100 mg tablet 100 mg PO BEDTIME metoprolol succinate 100 mg tablet extended release 24 hr 100 mg PO 1XD oxycodone-acetaminophen 5-325 mg tablet See Rx Instructions .ROUTE .COMPLEX Rx Instructions: 5 - 325 tab orally twice daily as needed for pain pantoprazole 40 mg tablet,delayed release (DR/EC) 40 mg PO 1XD potassium chloride 20 mEq tablet,ER particles/crystals 20 meq PO DIRECTED topiramate 25 mg tablet 25 mg PO 2XD Discontinued aripiprazole 2 mg tablet 2 mg PO 1XD cefdinir 300 mg capsule 300 mg PO 2XD methylprednisolone 4 mg tablets,dose pack See Rx Instructions .ROUTE .COMPLEX Rx Instructions: 4 mg orally quetiapine 200 mg tablet 200 mg PO BEDTIME Rx Instructions: 3 tablets by mouth at bedtime sertraline 100 mg tablet 100 mg PO BEDTIME trazodone 100 mg tablet 100 mg PO BEDTIME Rx Instructions: 2 tabs by mouth at bedtime Discharge Orders: Discharge Order (Routine); Ordered 12/16/22 Ordered By: Jatin Ardon Referrals: [facility] [Outside] - 12/20/22 2:15 pm (Initial appointment scheduled for 12/20/22 @ 2:15 pm in [place]) Discharge Diet: Usual diet Discharge Activity: Resume usual activity Patient Instructions: Quetiapine (By mouth), [id number] Ethyl Esters (By mouth), Bipolar Disorder (DC), COVID-19 (Coronavirus Disease 2019) (DC), Opioid Safety Activity Restrictions/Additional Instructions: vitamin D 5,000 IU daily while sick Vit C 4,000 mg a day broken up into 1,000 mg tablet 4 times daily Quercetin 500-1,000 gm daily in two doses Zinc 50 mg a day (may cause nausea) Alternate Tylenol and Motrin for fevers and body aches. May take Motrin 600 mg 3 times a day with Tylenol 1 g 4 times a day. Discharge Attestations NPU Time Spent in Discharge Care*: less than 30 min Specific Discharge Activities: Specific discharge activities: educating patient and documenting/other paperwork Coding Level of Care Code Acute [facility] DC note Diagnoses COVID-19 U07.1
[2022-12-16 14:14] VITALS: BP 149/76; PULSE 72; RESP 18; TEMP 37.3; O2SAT 97
--- NOTE | 2022-12-16 16:34 | DCPLANNER ---
. IMM was printed. Rights explained and given to pt and copy placed in his file.
== END 2022-12-16 14:53 | disposition home or self-care (01) | DRG 885 ==
LOC: ER 12-12 03:13 → NP 12-12 05:18
PROVIDERS: Emergency Medicine; Admitting Provider Psychiatry & Neurology Psychiatry; Emergency Provider Emergency Medicine; Visit Provider Psychiatry & Neurology Psychiatry
DX: F31.9 Bipolar disorder, unspecified (principal); U07.1 COVID-19; R45.851 Suicidal ideations; F41.9 Anxiety disorder, unspecified; Z91.51 Personal history of suicidal behavior; I10 Essential (primary) hypertension; Z79.891 Long term (current) use of opiate analgesic; M54.9 Dorsalgia, unspecified; M54.2 Cervicalgia; E78.1 Pure hyperglyceridemia
CPT/HCPCS: 36415; 80053; 80061; 80306; 80307; 81001; 83036; 83735; 85025; 87426; 87804; 93005; 96374; 96375; 97150; 97165; 99285; J1630; J2060

== ENCOUNTER 2025-02-07 12:43 | Emergency (ER) | payer MEDICARE, SELFPAY ==
[2025-02-07] VITALS (7 sets, daily range): BP systolic 107–142; BP diastolic 53–103; PULSE 61–72; RESP 16; TEMP 37; O2SAT 93–95; BMI 35.1
--- NOTE | 2025-02-07 14:44 | XR_ITS ---
WS: [id number] Portable AP upright chest, 02/07/2025 Clinical Data: chest pain Comparison: None. Findings: No nodules, masses or effusions are seen. The heart is normal. The pulmonary vascularity is not increased. No pneumonia or pneumothorax is seen. Bilateral shoulder prosthesis are present. There is an anterior cervical disc fusion. XR/XR chest 1V portable [id number] Impression: Negative chest.
--- NOTE | 2025-02-07 14:44 | ECG_ITS ---
[facility] Pat Name: Farzana Vasques Department: Room: Gender: Female Aircraft Structural Fitter: : 1960 Requested By: Luther Vyas Order Number: [id number] Reading MD: Measurements Intervals [place] Rate: 66 P: 37 ND: 153 QRS: 48 QRSD: 84 T: 51 QT: 390 QTc: 410 Interpretive Statements SINUS RHYTHM [email or web address]
--- NOTE | 2025-02-07 14:59 | W.ED.CHESTPA ---
HPI - Chest Pain General: Chief Complaint: Chest Pain Stated Complaint: chest pain Time Seen by Provider: 02/07/25 14:44 History of Present Illness: 64-year-old female presents emergency room with a complaint of intermittent chest pain. She has intermittent chest pain for the last several weeks she was seen last week in the emergency room and [place] cardiac workup evidently was negative and she was discharged home with outpatient follow-up with cardiology. Unfortunately they are only able to set her up with cardiology in [place] and she lives in this area so she returned home. Contact your primary care doctor they directed her to the emergency room. She did have some chest pain earlier today that began while at rest. She did take aspirin as well as a sublingual nitro which she thought helped a little bit she has minimal just discomfort at this time. She has a history of COPD per her report has a generalized baseline cough that has not changed. No productive cough. No recent fever sweats or chills. Associated symptoms: Deny abdominal pain, dyspnea or fever(s) Related Data Home Medications ?Medication ?Instructions ?Recorded ?Confirmed albuterol sulfate 90 mcg/actuation See Rx Instructions .Route 12/12/22 12/12/22 aerosol inhaler .COMPLEX asthma atorvastatin 20 mg tablet 20 mg PO 1XD 12/12/22 12/12/22 lamotrigine 100 mg tablet 100 mg PO BEDTIME 12/12/22 12/12/22 metoprolol succinate 100 mg 100 mg PO 1XD 12/12/22 12/12/22 tablet,extended release 24 hr oxycodone-acetaminophen 5 mg-325 See Rx Instructions .Route .COMPLEX 12/12/22 12/12/22 mg tablet pantoprazole 40 mg tablet,delayed 40 mg PO 1XD 12/12/22 12/12/22 release potassium chloride 20 mEq 20 meq PO DIRECTED 12/12/22 12/12/22 tablet,extended release(part/cryst) topiramate 25 mg tablet 25 mg PO 2XD 12/12/22 12/12/22 Previous Rx's ?Medication ?Instructions ?Recorded omega-3 acid ethyl esters 1 gram 2 cap PO BID #120 caps 12/15/22 capsule (Lovaza) quetiapine 300 mg tablet (Seroquel) 300 mg PO .qhs #30 tabs 12/15/22 quetiapine 400 mg tablet (Seroquel) 400 mg PO .qhs #30 tabs 12/15/22 aspirin 81 mg tablet,delayed 81 mg PO DAILY #30 tabs 02/07/25 release Allergies Allergy/AdvReac Type Severity Reaction Status Date / Time doxycycline Allergy Unknown Verified 02/07/25 13:00 Penicillins Allergy Unknown Verified 12/12/22 03:40 Sulfa (Sulfonamide Allergy Unknown Verified 12/12/22 03:40 Antibiotics) Review of Systems Const: Denies: fever(s) or chills Card: Denies: chest pain Resp: Denies: dyspnea GI: Denies: abdominal pain : Denies: dysuria, urinary frequency or urinary urgency Musc: Denies: neck pain or back pain Skin/Breast: Denies: rash Physical Exam Const: COMMON NORMALS: no acute distress GENERAL APPEARANCE: cooperative and comfortable ORIENTATION/CONSCIOUSNESS: Yes awake, Yes oriented to person, Yes oriented to place and Yes oriented to time HENMT: COMMON NORMALS: normocephalic, atraumatic and hearing grossly normal bilaterally HEAD & SCALP: normocephalic and atraumatic Resp: COMMON NORMALS: normal respiratory effort, No retractions, No use of accessory muscles and clear to auscultation bilaterally AUSCULTATION: clear to auscultation bilaterally Cardio: COMMON NORMALS: regular rate, regular rhythm and No murmurs present (Cardio) RATE: regular rate RHYTHM: regular rhythm GI: COMMON NORMALS: Soft to palpation and No hepatosplenomegaly present AUSCULTATION: Yes normoactive bowel sounds PALPATION: Yes Soft to palpation, No Tenderness to palpation present (GI), No Guarding due to palpation present (GI) and Yes No hepatosplenomegaly present Extremity: COMMON NORMALS: normal to inspection, capillary refill normal, no clubbing, cyanosis or edema, no calf tenderness and no pedal edema Neuro: SENSORIUM/ORIENTATION: Yes oriented to person, Yes oriented to place and Yes oriented to time Skin: COMMON NORMALS: no rashes or lesions noted GENERAL SKIN EXAM: no rashes or lesions noted Course Vital Signs: Vital signs: Vital Signs Temperature 98.6 F 02/07/25 12:55 Pulse Rate 62 02/07/25 17:27 Respiratory Rate 16 02/07/25 12:55 Blood Pressure 107/53 02/07/25 17:27 Pulse Oximetry 95 02/07/25 17:27 Oxygen Delivery Me thod Room Air 02/07/25 17:00 MDM - Chest Pain Medical Decision Making Medical decision making Social determinants: None I reviewed the patient's medical record. I reviewed the patient's current home meds. Alternate historians: None Differential diagnosis: Acute coronary syndrome PE pneumonia Lab Review: Labs reviewed no leukocytosis hemoglobin stable chemistries unremarkable slight elevation of liver functions. Troponins no significant delta. Imaging: Chest x-ray unremarkable no acute infiltrates no effusions Assessment of risk Level of risk: Moderate Hospitalization considerations: Pending workup for acute coronary syndrome Reexamination: No pain at this time exam otherwise unchanged Assessment and plan: EKG is normal no acute changes troponins lower end of normal no positive delta. Will discharge patient home recommend starting baby aspirin daily refer for follow-up to cardiology return if has further symptoms. Did note she has some mild elevation of her liver enzymes that she does not have any symptoms suggestive of biliary colic at this time should follow-up with her primary care doctor regarding this. Lab Data 02/07/25 14:55 02/07/25 14:55 Radiology Impressions Chest X-Ray 02/07/25 14:44 Impression: Negative chest. Laboratory Results WBC 7.49 10^3/uL (3.29-11.43) 02/07/25 14:55 RBC 4.57 10^6/uL (3.85-5.65) 02/07/25 14:55 Hgb 12.30 g/dL (11.27-16.99) 02/07/25 14:55 Hct 36.9 % (36-47) 02/07/25 14:55 MCV 80.7 fl (85-98) L 02/07/25 14:55 MCH 26.9 pg (27-33) L 02/07/25 14:55 MCHC 33.3 g/dL (30-55) 02/07/25 14:55 RDW 13.6 % (12.1-15.1) 02/07/25 14:55 Plt Count 203 10^3/cmm (157-399) 02/07/25 14:55 MPV 9.8 fL (7.4-10.4) 02/07/25 14:55 Neut % (Auto) 79.9 % 02/07/25 14:55 Lymph % (Auto) 15.4 % 02/07/25 14:55 [place] % (Auto) 2.9 % 02/07/25 14:55 Eos % (Auto) 0.5 % 02/07/25 14:55 Baso % (Auto) 0.5 % 02/07/25 14:55 Neut # (Auto) 5.98 10^3/uL (1.8-7.7) 02/07/25 14:55 Lymph # (Auto) 1.2 10^3/uL (0.8-4.8) 02/07/25 14:55 [place] # (Auto) 0.2 10^3/uL (0.2-0.9) 02/07/25 14:55 Eos # (Auto) 0.0 10^3/uL (0.0-0.8) 02/07/25 14:55 Baso # (Auto) 0.0 10^3/uL (0.0-0.1) 02/07/25 14:55 Nucleated RBC % (auto) 0 % 02/07/25 14:55 Nucleated RBCs # 0.0 /100WBC 02/07/25 14:55 Sodium 138 mmol/L (136-145) 02/07/25 14:55 Potassium 4.5 mmol/L (3.5-5.1) 02/07/25 14:55 Chloride 104 mmol/L (98-107) 02/07/25 14:55 Carbon Dioxide 24 mmol/L (22-29) 02/07/25 14:55 Anion Gap 14.5 (5-19) 02/07/25 14:55 BUN 15 mg/dL (8-23) 02/07/25 14:55 Creatinine 0.9 mg/dL (0.5-0.9) 02/07/25 14:55 GFR Calculation 62.8 mL/min (90-130) L 02/07/25 14:55 Glucose 116 mg/dL (65-115) H 02/07/25 14:55 Calculated Osmolality 288 mOsm/kg (285-295) 02/07/25 14:55 Calcium 9.5 mg/dL (8.5-10.5) 02/07/25 14:55 Total Bilirubin 0.3 mg/dL (0.15-1.2) 02/07/25 14:55 AST 38 U/L (0-32) H 02/07/25 14:55 ALT 53 U/L (0-33) H 02/07/25 14:55 Alkaline Phosphatase 120 U/L (35-105) H 02/07/25 14:55 Troponin T Baseline < 6 ng/L (0-10) 02/07/25 14:55 Troponin T 60 Minute 6.63 ng/L (0-10) 02/07/25 15:39 Delta Troponin T 0.40382 ABS# (0-10) 02/07/25 15:39 Total Protein 6.8 g/dL (6.6-8.7) 02/07/25 14:55 Albumin 4.6 g/dL (3.5-5.2) 02/07/25 14:55 Globulin 2.2 g/dL (1.3-4.6) 02/07/25 14:55 All radiology interpretation(s) finalized by discharge EKG Data EKG 1: I personally reviewed and interpreted this EKG as follows: Interpretation: EKG 02/07/2025 1448 sinus rhythm rate of 66. [place] 153 QTc [address] changes noted. Compared to EKG 10 02/10/2023 no changes EKG 2: I personally reviewed and interpreted this EKG as follows: Interpretation: EKG 02/07/2025 12:54 AM sinus rhythm rate 60 open [place] interval 144 QTc [address] changes noted. Compared to EKG done earlier same day no change. Discharge Plan Discharge Patient Disposition: Home Clinical Impression: Chest pain Condition: Stable Prescriptions: New aspirin 81 mg tablet,delayed release (DR/EC) 81 mg PO DAILY Qty: 30 0RF No Action albuterol sulfate 90 mcg/actuation HFA aerosol inhaler See Rx Instructions .ROUTE .COMPLEX Rx Instructions: two puffs as needed q 6hours atorvastatin 20 mg tablet 20 mg PO 1XD lamotrigine 100 mg tablet 100 mg PO BEDTIME metoprolol succinate 100 mg tablet extended release 24 hr 100 mg PO 1XD oxycodone-acetaminophen 5-325 mg tablet See Rx Instructions .ROUTE .COMPLEX Rx Instructions: 5 - 325 tab orally twice daily as needed for pain pantoprazole 40 mg tablet,delayed release (DR/EC) 40 mg PO 1XD potassium chloride 20 mEq tablet,ER particles/crystals 20 meq PO DIRECTED topiramate 25 mg tablet 25 mg PO 2XD Lovaza 1 gram capsule 2 cap PO BID Qty: 120 1RF Seroquel 400 mg tablet 400 mg PO .qhs Qty: 30 1RF Rx Instructions: total nightly dose 700mg Seroquel 300 mg tablet 300 mg PO .qhs Qty: 30 1RF Discharge Orders: Discharge ED (Routine); Ordered 02/07/25 Ordered By: Luther Cavazos Referrals: Darryl Morelos [Primary Care Provider, Family Practice] Discharge Diet: Usual diet Discharge Activity: Limit activity as instructed Patient Instructions: Chest Pain (ED), Opioid Safety, Pain Management, Patient Portal & [place] Instructions Activity Restrictions/Additional Instructions: Thank you for choosing [facility] for your healthcare needs today. It is very important that you follow up as instructed or that you return to the Emergency Department should you have concerns or if your condition changes or worsens in any way. Emergency department visits are focused on emergent conditions, in some cases you may require further evaluation on an outpatient basis. You were seen in the emergency room with complaints of chest comfort. Your EKG did not show any acute change your cardiac enzymes are normal. Recommend you take a baby aspirin daily continue metoprolol case management make arrangements for you to follow-up with regional flatbed truck driver within the next few days. Return to emergency room if you have further episodes of chest pain. (Please note that included in your discharge packet is information concerning opioid safety and pain management. This information is given to all patients were discharged from the ER regardless of their discharge diagnosis or the medicines they usually take or are prescribed.) Print Language: Ivorian Coding Level of Care Code ED [employer] Representative for Chg Fwd Heart Score HEART Score Components History: Slightly Suspicous EKG: Normal Age: 65 or more yrs Risk Factors: 1 or 2 Risk Factors Troponin: Baseline Trop <16 ng/L HEART Score RESULT HEART Score: 3
[2025-02-07 15:09] LABS: Hematocrit 36.9 % (36-47); Hemoglobin 12.30 g/dL (11.27-16.99); Mean Corpuscular HGB Conc 33.3 g/dL (30-55); Mean Corpuscular Hemoglobin 26.9 pg (27-33); Mean Corpuscular Volume 80.7 fl (85-98); Nucleated Red Blood Cells % 0 %; Platelet Count 203 10^3/cmm (157-399); Red Blood Count 4.57 10^6/uL (3.85-5.65); White Blood Count 7.49 10^3/uL (3.29-11.43)
[2025-02-07 15:21] LABS: Alanine Aminotransferase 53 U/L (0-33); Albumin Level 4.6 g/dL (3.5-5.2); Alkaline Phosphatase 120 U/L (35-105); Anion Gap 14.5 (5-19); Aspartate Amino Transferase 38 U/L (0-32); Blood Urea Nitrogen 15 mg/dL (8-23); Calcium 9.5 mg/dL (8.5-10.5); Carbon Dioxide 24 mmol/L (22-29); Chloride 104 mmol/L (98-107); Globulin 2.2 g/dL (1.3-4.6); Glucose 116 mg/dL (65-115); Osmolality Calculated 288 mOsm/kg (285-295); Potassium 4.5 mmol/L (3.5-5.1); Sodium 138 mmol/L (136-145); Total Protein 6.8 g/dL (6.6-8.7); Troponin(5th) Baseline < 6 ng/L (0-10)
[2025-02-07] MEDS: ondansetron 2 mg/ML SDV 2 mL 4 MG IVP (15:39)
--- NOTE | 2025-02-07 15:44 | ECG_ITS ---
[facility] Test Date: 2025-02-07 Pat Name: Farzana Vasques Department: Room: Gender: Female [employer]: : [id number] Requested By: Luther Vyas Order Number: [id number] Reading MD: Measurements Intervals [place] Rate: 67 P: 35 VT: 144 QRS: 65 QRSD: 85 T: 69 QT: 383 QTc: 407 Interpretive Statements SINUS RHYTHM No previous ECG available for comparison [email or web address]
== END 2025-02-07 17:28 | disposition home or self-care (01) ==
PROVIDERS: Emergency Provider Family Medicine; PCP Family Medicine
DX: R07.9 Chest pain, unspecified (principal)
CPT/HCPCS: 36415; 71045; 80053; 84484; 85025; 93005; 96374; 99285; J2405; J9999